=== PATIENT | male | born 1960 | race Caucasian/White ===

== ENCOUNTER → 2016-11-28 | Outpatient (CLI) | payer MEDICAID ==
[~2016-11-28] MED LIST: ATOR20TA15 PO; AUGM875T3 PO; BUSP10TA PO; GABA300C5 PO; TERA5CAP3 PO
--- NOTE | 2016-11-28 11:03 | RADRPT ---
EXAM DATE/TIME: 11/28/2016 00:00 [place] COMPARISON: No previous studies available for comparison. INDICATIONS : Dysphagia, pain when swallowing FLUORO TIME: 2.1 minutes IMAGE COUNT: 0 CONTRAST: Dose as prescribed by speech pathologist. MEDICAL HISTORY : Gastroesophageal reflux disease. SURGICAL HISTORY : None. ENCOUNTER: Initial ACUITY: 4 - 6 months PAIN SCORE: Non-responsive. LOCATION: Bilateral esophagus FINDINGS: A modified barium swallow was performed with speech pathology. Patient was given a variety of liquids to swallow. No aspiration or penetration with thin and thick liquids or solid consistencies. Minimal pooling in t he vallecula. For a full detailed report, see report by the speech pathologist. CONCLUSION: No aspiration. Daniel Heck MD on November 28, 2016 at 11:01 Board Certified Radiologist. This report was verified electronically.
== END ==
LOC: HRAD 10:04
DX: R22.0 Localized swelling, mass and lump, head (principal); R13.10 Dysphagia, unspecified; K21.9 Gastro-esophageal reflux disease without esophagitis; J34.2 Deviated nasal septum; J34.3 Hypertrophy of nasal turbinates
CPT/HCPCS: 74230; 92611; G8996; G8997; G8998